=== PATIENT | male | born 1950 | race Caucasian/White ===

== ENCOUNTER 2024-08-30 08:01 | Emergency (ER) | payer MEDICARE, OTHER ==
[~2024-08-30] VITALS: Ht 165.1 cm; Wt 72.6 kg
[2024-08-30] MEDS ORDERED: MINOXIDIL2.5 MG PO (08:33)
[2024-08-30] MEDS ORDERED: TRAZODONE HCL100 MG PO (08:33)
[2024-08-30] MEDS ORDERED: ATORVASTATIN CA20 MG PO (08:33)
[2024-08-30] MEDS: KETOROLAC TROMETHAMINE 30 MG/ML VIAL IV STA (08:47)
[2024-08-30] MEDS: SODIUM CHLORIDE 0.9% 1000ML 1,000 ML IV SCH (08:47)
[2024-08-30] MEDS ORDERED: CYCLOBENZAPRINE5 MG PO (09:41)
[2024-08-30 09:48] VITALS: PULSE 59; RESP 16; TEMP 97.5; O2SAT 98
== END 2024-08-30 09:48 | disposition home or self-care (01) ==
LOC: FSED 08:10
DX: M54.50 Low back pain, unspecified (principal); R31.9 Hematuria, unspecified; E78.5 Hyperlipidemia, unspecified; Z87.442 Personal history of urinary calculi
CPT/HCPCS: 74176; 80048; 81003; 85025; 96374; 99284; J1885; J7030